=== PATIENT | female | born 1980 | race Two or more races ===

== ENCOUNTER 2020-04-25 22:30 | Inpatient (IN) | payer MEDICAID, OTHER ==
[~2020-04-25] VITALS: Ht 160 cm; Wt 64.9 kg
[~2020-04-25 22:30] MED LIST: ISONIAZID
[2020-04-26] MEDS ORDERED: NITROGLYCERIN 0.4MG TABLET SL SL ONE ×2 (00:15→00:45)
[2020-04-26 00:27] LABS: BASOPHILS % 0.5 % (0.0-2.0); HEMATOCRIT. 43.1 % (36.0-48.0); HEMOGLOBIN. 14.4 g/dL (12.0-16.0); LYMPHOCYTES % 12.6 % (20.0-50.0); MEAN CORPUSCULAR HEMOGLOBIN 29.7 pg (28.0-32.0); MEAN CORPUSCULAR VOLUME 88.7 fL (81.0-99.0); MEAN PLATELET VOLUME 9.1 fl (7.4-10.4); MONOCYTES % 5.2 % (2.0-8.0); NEUTROPHILS % 80.7 % (40.0-76.0); PLATELET 216 x1000/uL (130-400); RED BLOOD CELL COUNT 4.85 mill/uL (4.2-5.4); RED CELL DISTRIBUTION WIDTH 13.7 % (11.6-14.6)
[2020-04-26 00:49] LABS: CHLORIDE 101 mEq/L (98-107)
[2020-04-26] MEDS ORDERED: MORPHINE SULFATE 4 MG/ML CPJ (NOT FOR IM USE) IV ONE ×2 (01:00→02:00)
[2020-04-26] MEDS ORDERED: ASPIRIN 81MG TABLET PO SCH (02:00)
[2020-04-26] MEDS ORDERED: SODIUM CHLORIDE 0.9% 1,000 ML IV ONE (02:00)
[2020-04-26 03:30] VITALS: BP 123/80
[2020-04-26 04:00] VITALS: BP 123/80
[2020-04-26] MEDS ORDERED: CHOL40002 MT (04:53)
[2020-04-26] MEDS ORDERED: CYAN50003 MT (04:54)
[2020-04-26] MEDS ORDERED: ONDANSETRON HCL 4MG/2ML INJ IV PRN (06:00)
[2020-04-26] MEDS ORDERED: GUAIFENESIN 200MG/10ML SUGAR FREE UDC PO PRN (06:00)
[2020-04-26] MEDS ORDERED: HYDROCODONE/ACETAMINOPHEN 5/325MG TABLET PO PRN (06:00)
[2020-04-26] MEDS ORDERED: MAGNESIUM/ALUMINUM HYDROXIDE/SIMETHICONE 30ML UDC PO PRN (06:00)
[2020-04-26] MEDS ORDERED: DOCUSATE SODIUM 100MG CAPSULE PO PRN (06:00)
[2020-04-26] MEDS ORDERED: CLONIDINE 0.1MG TABLET PO PRN (06:00)
[2020-04-26] MEDS ORDERED: ACETAMINOPHEN 325MG TABLET PO PRN (06:00)
[2020-04-26 08:00] VITALS: BP 117/73
[2020-04-26] MEDS ORDERED: CEFTRIAXONE 1,000 MG in DEXTROSE 5% WATER 50 ML IV SCH (08:00)
[2020-04-26] MEDS ORDERED: METOPROLOL TARTRATE 25MG TABLET PO SCH (09:00)
[2020-04-26] MEDS ORDERED: ENOXAPARIN 40MG/0.4ML SYR SUBCUT SCH (09:00)
[2020-04-26] MEDS ORDERED: MORPHINE SULFATE 2 MG/ML CPJ (NOT FOR IM USE) IV SCH (11:00)
[2020-04-26 12:00] VITALS: BP 133/88
[2020-04-26] MEDS ORDERED: ASPIRIN 81MG EC TABLET PO SCH (12:00)
[2020-04-26] MEDS ORDERED: INFLUENZA VACCINE 05/PF 0.5 ML VIAL IM ONE (12:00)
[2020-04-26 12:54] VITALS: BP 133/88
== END 2020-04-26 13:59 | disposition home or self-care (01) | DRG 203 ==
LOC: ER 22:30 → 6WST 04-26 01:55 → EDBEDREQ 04-26 01:57 → EDBEDREQTM 04-26 01:57 → ENRESERV 04-26 02:21
PROVIDERS: ADMIT Hospitalist; ATTEND Hospitalist
DX: M94.0 Chondrocostal junction syndrome [Tietze] (principal); E66.9 Obesity, unspecified; E78.00 Pure hypercholesterolemia, unspecified; E78.5 Hyperlipidemia, unspecified; I10 Essential (primary) hypertension; Z82.49 Family history of ischemic heart disease and other diseases of the circulatory system; Z98.891 History of uterine scar from previous surgery; Z79.899 Other long term (current) drug therapy; Z68.25 Body mass index [BMI] 25.0-25.9, adult
CPT/HCPCS: 36415; 71045; 80053; 82962; 83036; 83880; 84484; 85025; 87186; 90686; 93005; 93306; 99285; J0696; J1650; J2270; J7060

== ENCOUNTER 2020-11-02 15:00 | Emergency (ER) | payer MEDICAID ==
[~2020-11-02] VITALS: Ht 160 cm; Wt 82.0 kg
[~2020-11-02 15:00] MED LIST changes: +CHOL40002 MT; +CYAN50003 MT; -ISONIAZID
[2020-11-02] MEDS ORDERED: ACETAMINOPHEN WITH CODEINE 300/30MG TABLET PO STA (15:44)
[2020-11-02] MEDS ORDERED: KETOROLAC 60MG/2ML VIAL IM STA (15:44)
[2020-11-02 16:59] VITALS: BP 146/78
[2020-11-02] MEDS ORDERED: T3 PO (17:49)
[2020-11-02] MEDS ORDERED: IBUP-2029 PO (17:49)
== END 2020-11-02 18:26 | disposition home or self-care (01) ==
LOC: ER 15:00
DX: S70.12XA Contusion of left thigh, initial encounter (principal); M25.552 Pain in left hip; M25.561 Pain in right knee; V03.90XA Pedestrian on foot injured in collision with car, pick-up truck or van, unspecified whether traffic or nontraffic accident, initial encounter; Y93.01 Activity, walking, marching and hiking; Y92.488 Other paved roadways as the place of occurrence of the external cause
CPT/HCPCS: 73502; 73552; 73562; 96372; 99284; J1885

== ENCOUNTER 2025-03-27 06:13 | Emergency (ER) | payer SELFPAY ==
[~2025-03-27] VITALS: Ht 154.9 cm; Wt 88.6 kg
[~2025-03-27 06:13] MED LIST changes: -CYAN50003 MT; +CYAN50007 MT; +IBUP-1455 PO; +T3 PO
[2025-03-27 06:23] VITALS: O2SAT 99
[2025-03-27 06:25] VITALS: TEMP 36.7
[2025-03-27] MEDS ORDERED: ACYC-58 MT (08:19)
[2025-03-27] MEDS ORDERED: IBUP-1523 MT (08:19)
[2025-03-27] MEDS ORDERED: HYDR-4001 MT (08:19)
[2025-03-27 08:30] VITALS: BP 133/76; PULSE 75; RESP 16; O2SAT 100
== END 2025-03-27 08:31 | disposition home or self-care (01) ==
LOC: ER 06:13
DX: B02.9 Zoster without complications (principal); E11.9 Type 2 diabetes mellitus without complications; Z79.899 Other long term (current) drug therapy
CPT/HCPCS: 99283